=== PATIENT | female | born 1960 | race Caucasian/White ===

== ENCOUNTER 2019-11-23 07:39 | Outpatient (CLI) | payer MEDICAID, SELFPAY ==
[2019-11-23 07:51] VITALS: BP 111/55; PULSE 59; RESP 17; TEMP 37.3; O2SAT 97
[2019-11-23] MEDS: Lactated Ringers 1,000 ML 80 ML IV (08:39)
[2019-11-23] MEDS: fentaNYL 100 MCG/2 ML VIAL IVP ×2 (08:47→08:51)
[2019-11-23] MEDS: Midazolam 2 MG/2 ML VIAL IVP (08:48)
[2019-11-23 09:19] VITALS: BP 138/77; PULSE 58; RESP 12; O2SAT 99
--- NOTE | 2019-11-23 09:20 | DI.RAD_ITS ---
EXAM: XR PAIN CLINIC FLUORO JOINT IN CLINICAL HISTORY: Dx: Osteoarthritis of right knee. TECHNIQUE: Fluoroscopy was provided for the referring physician for guidance with performing injecti on procedure. COMPARISON: No exams were available for comparison FINDINGS: Please see procedure note for details. Fluoro time: 53.5 sec RADIATION DOSE DELIVERED:
[2019-11-23] MEDS: Lidocaine 1% Pres-Free 30 ML VIAL IJ (09:23)
[2019-11-23] MEDS: Bupivacaine 0.5% Pres-Free 10 ML VIAL IJ (09:23)
[2019-11-23] MEDS: Lidocaine 2% Pres-Free 5 ML VIAL IJ (09:24)
[2019-11-23] MEDS: methylPREDNISolone ACETATE 80 MG/ML VIAL IJ (09:24)
--- NOTE | 2019-11-23 09:29 | PDOC.PAIN_ITS ---
Pain Clinic Procedure Note Procedure Note Procedure Note: RIGHT GENICULAR NERVE RADIOFREQUENCY ABLATION WITH THE COOLIEF MACHINE Date of Service: November 23, 2019 Patient: Shey Link Provider: TERELL CARTER MD Pre-operative diagnosis: right knee osteoarthritis Post-operative diagnosis: same as above COMMENTS: Previous Genicular nerve block to the right knee was done at [facility] [place], patient received 95% pain relief. patient is status post right total knee replacement with multiple revisions, she reports 6 surgeries on the right knee - including a prior history of staph infection requiring IV antibiotics. Shey Link has been referred to the [facility] for RIGHT genicu lar nerve radiofrequency ablation. Shey was interviewed and the medical record reviewed. There were no medical, pharmacologic, radiographic or other structural contraindications to attempting fluoroscopically guided RIGHT genicular nerve radiofrequency ablation. Risks and potential side effects as well as potential benefit of the procedure were reviewed with Shey Link , and HER voiced concerns were addressed. After I believed that the patient was completely informed, the printed consent form was signed. Standard time-out procedure was performed. Shey was placed in the supine position on the fluoroscopy table and automated blood pressure cuff and pulse oximeter applied. The skin entry points for approaching RIGHT superolateral genicular nerve, the superomedial genicular nerve and the inferomedial genicular was identified under the most advantageous fluoroscopic view and marked. Following thorough Chlorhexadine preparation of the skin and draping, 1% lidocaine infiltration of the skin entry point and subcutaneous tissues was accomplished using a 1.5 25G needle. Next, the coolief RF Cannula with a 10 mm active tip was advanced to os at the location of the specific nerve roots (3) using fluoroscopic guidance. Next, sensory and motor testing was performed and no abnormal findings were found. Next, 1 cc of 2% Lidocaine was injected at each site. The lesion was then created with 80 degrees C for 90 seconds. Each needle was advance 1 cm and the lesion was completed again. Each cannula was advanced until the tip reached the posterior aspect of the bone shaft. 1/3 cc of Depomedrol (40 mg/cc) was then injected at each site followed by 2 cc of 0.5% Bupivacaine as the needle was withdrawn. The needles were removed without difficulty. Shey's vital signs were stable throughout the procedure and were as recorded in the docflowsheet by the nursing staff. If given, dosages of intravenous drugs for anxiolysis and analgesia were documented in JUN. Follow up plans and appointments were discussed with the Shey Link . Post procedure instruction was given as documented in nursing documentation and having met discharge criteria, Shey was discharged from the [facility]. COMMENTS: No complications. Nam WJ1, Aki SJ, Kendall JG, Laura JG, Nilson YOUSSEF, Aaliyah PH, Edward JW. Radiofrequency treatment relieves chronic knee osteoarthritis pain: a double-blind randomized controlled trial. Pain. 2011 Jun;152(3):481-7. doi: 10.1016/j.pain.2010.09.029. Amber S1, Wilber ON2, Paige Y3, ?zl?lerden P2, Saqib U1, Maykel ?m?rl? I. Which one is more effective for the clinical treatment of chronic pain in knee osteoarthritis: radiofrequency neurotomy of the genicular nerves or intra- articular injection? Int J Rheum Dis. 2016 Nov 16. Patient received 1mg of IV versed and 50mcg of IV Fentanyl for anxiolysis. I personally performed this entire procedure. Terell Carter MD Attending Physician
== END 2019-11-23 07:59 ==
PROVIDERS: Visit Provider Internal Medicine
DX: M17.11 Unilateral primary osteoarthritis, right knee (principal)
CPT/HCPCS: 64624; 64640; 77002; J1040; J2250; J3010

== ENCOUNTER 2020-06-21 12:58 | Outpatient (CLI) | payer MEDICAID, SELFPAY ==
--- NOTE | 2020-06-21 06:00 | DI.RAD_ITS ---
EXAM: XR PAIN CLINIC FLUORO JOINT IN CLINICAL HISTORY: Dx: Osteoarthiritis of the knee TECHNIQUE: 2D and realtime digital imaging was performed. CONTRAST MATERIAL: None. COMPARISON: No exams were available for comparison FINDINGS: Fluoroscopy was provided during genicular radiofrequency ablation treatment of the right knee. See p rocedyarelis report for details.. Fluoro time: 88.6 seconds Cumulative dose: 6.53 mGy IMPRESSION:
[2020-06-21 13:20] VITALS: BP 132/76; PULSE 59; RESP 17; TEMP 37.1; O2SAT 98
--- NOTE | 2020-06-21 13:32 | PDOC.PAIN_ITS ---
Pain Clinic Procedure Note Procedure Note Procedure Note: RIGHT GENICULAR NERVE RADIOFREQUENCY ABLATION WITH THE COOLIEF MACHINE Date of Service: June 212020 Patient: Shey Link Provider: TERELL CARTER MD Pre-operative diagnosis: right knee osteoarthritis Post-operative diagnosis: same as above COMMENTS: Previous Genicular nerve block to the right knee was done at [facility] [place], patient received 95% pain relief last for six months. patient is status post right total knee replacement with multiple revisions, she reports 6 surgeries on the right knee - including a prior history of staph infection requiring IV antibiotics. Shey Link has been referred to the [facility] for RIGHT genicular nerve radiofrequency ablation. Shey was interviewed and the medical record reviewed. There were no medical, pharmacologic, radiographic or other structural contraindications to attempting fluoroscopically guided RIGHT genicular nerve radiofrequency ablation. Risks and potential side effects as well as potential benefit of the procedure were reviewed with Shey Link , and HER voiced concerns were addressed. After I believed that the patient was completely informed, the printed consent form was signed. Standard time-out procedure was performed. Shey was placed in the supine position on the fluoroscopy table and automated blood pressure cuff and pulse oximeter applied. The skin entry points for approaching RIGHT medial retinacular nerve, superolateral genicular nerve, the superomedial genicular nerve and the inferomedial genicular was identified under the most advantageous fluoroscopic view and marked. Following thorough Chlorhexadine preparation of the skin and draping, 1% lidocaine infiltration of the skin entry point and subcutaneous tissues was accomplished using a 1.5 25G needle. Next, the coolief RF Cannula with a 10 mm active tip was advanced to os at the location of the specific nerve roots (4) using fluoroscopic guidance. Next, sensory and motor testing was performed and no abnormal findings were found. Next, 1 cc of 2% Lidocaine was injected at each site. The lesion was then created with 80 degrees C for 90 seconds. Each needle was advance 1 cm and the lesion was completed again. Each cannula was advanced until the tip reached the posterior aspect of the bone shaft. 1/3 cc of Depomedrol (40 mg/cc) was then injected at each site followed by 2 cc of 0.5% Bupivacaine as the needle was withdrawn. The needles were removed without difficulty. Shey's vital signs were stable throughout the procedure and were as recorded in the docflowsheet by the nursing staff. If given, dosages of intravenous drugs for anxiolysis and analgesia were documented in JUN. Follow up plans and appointments were discussed with the Shey Link . Post procedure instruction was given as documented in nursing documentation and having met discharge criteria, Shey was discharged from the [facility]. COMMENTS: No complications. Nam WJ1, Aki SJ, Kendall JG, Laura JG, Nilson YOUSSEF, Aaliyah PH, Edward JW. Radiofrequency treatment relieves chronic knee osteoarthritis pain: a double-blind randomized controlled trial. Pain. 2010;152(3):481-7. doi: 10.1016/j.pain.2010.09.029. Amber S1, Wilber ON2, Paige Y3, ?zl?lerden P2, Saqib U1, Maykel ?m?rl? I. Which one is more effective for the clinical treatment of chronic pain in knee osteoarthritis: radiofrequency neurotomy of the genicular nerves or intra- articular injection? Int J Rheum Dis. 2016 Nov 16. Patient received 1mg of IV versed and 75mcg of IV Fentanyl for anxiolysis. I personally performed this entire procedure. Terell Carter MD Attending Physician
[2020-06-21] MEDS: Lactated Ringers 1,000 ML 80 ML IV (13:50)
[2020-06-21] MEDS: Midazolam 2 MG/2 ML VIAL IVP (14:09)
[2020-06-21] MEDS: fentaNYL 100 MCG/2 ML VIAL IVP ×3 (14:09→14:29)
[2020-06-21 14:48] VITALS: BP 144/66; PULSE 66; RESP 19; O2SAT 97
[2020-06-21] MEDS: Lidocaine 2% Pres-Free 5 ML VIAL IJ (15:16)
[2020-06-21] MEDS: Bupivacaine 0.5% Pres-Free 10 ML VIAL IJ (15:17)
[2020-06-21] MEDS: Lidocaine 1% Pres-Free 30 ML VIAL IJ (15:17)
[2020-06-21] MEDS: methylPREDNISolone ACETATE 40 MG/ML VIAL IJ (15:17)
== END 2020-06-21 12:59 | disposition home or self-care (01) ==
LOC: PC 13:03
PROVIDERS: Visit Provider Internal Medicine
DX: M17.11 Unilateral primary osteoarthritis, right knee (principal)
CPT/HCPCS: 64624; 77002; J1030; J2250; J3010

== ENCOUNTER 2021-06-27 07:52 | Outpatient (CLI) | payer MEDICAID, SELFPAY ==
--- NOTE | 2021-06-27 06:00 | DI.RAD_ITS ---
Exam(s) XR PAIN CLINIC FLUORO JOINT IN EXAM: XR PAIN CLINIC FLUORO JOINT IN CLINICAL HISTORY: Dx: Osteoarthritis of the knee TECHNIQUE: 2D and realtime digital imaging was performed. Radiologist not present. CONTRAST MATERIAL: None. COMPARISON: No exams were available for comparison FINDINGS: Fluoroscopy was provided for pain management therapy. Please refer to procedure report or details. Cumulative dose: Ka,r=7.15 mGy IMPRESSION: RADIATION DOSE DELIVERED:
[2021-06-27 08:07] VITALS: BP 147/90; PULSE 66; RESP 20; TEMP 36.6; O2SAT 97
[2021-06-27] MEDS: fentaNYL 100 MCG/2 ML VIAL IVP ×2 (08:41→08:47)
[2021-06-27] MEDS: Midazolam 2 MG/2 ML VIAL IVP (08:42)
--- NOTE | 2021-06-27 09:16 | PDOC.PAIN_ITS ---
Pain Clinic Procedure Note Procedure Note Procedure Note: RIGHT GENICULAR NERVE RADIOFREQUENCY ABLATION WITH THE COOLIEF MACHINE Date of Service: June 27, 2021 Patient: Shey Link Provider: Arie Watts DO, MPH Pre-operative diagnosis: Right knee osteoarthritis Post-operative diagnosis: Same COMMENTS: Previous Genicular ablation to the RIGHT knee on 06/21/2020 with >6 months of relief.. Shey Link has been referred to the [facility] for RIGHT genicular nerve radiofrequency ablation. Shey was interviewed and the medical record reviewed. There were no medical, pharmacologic, radiographic or other structural contraindications to attempting fluoroscopically guided RIGHT genicular nerve radiofrequency ablation. Risks and potential side effects as well as potential benefit of the procedure were reviewed with Shey Link, and HER voiced concerns were addressed. After I believed that the patient was completely informed, the printed consent form was signed. Standard time-out procedure was performed. Shey was placed in the supine position on the fluoroscopy table and automated blood pressure cuff and pulse oximeter applied. The skin entry points for approaching RIGHT superolateral genicular nerve, the superomedial genicular nerve and the inferomedial genicular was identified under the most advantageous fluoroscopic view and marked. Following thorough Chlorhexadine preparation of the skin and draping, 1% lidocaine infiltration of the skin entry point and subcutaneous tissues was accomplished using a 1.5 25G needle. Next, the 5 cm 18G RF Cannula with a 4 mm active tip was advanced to os at the location of the specific nerve roots (3) using fluoroscopic guidance. Next, sensory and motor testing was performed and no abnormal findings were found. Next, 1 cc of 2% Lidocaine was injected at each site. The lesion was then created with 80 degrees C for 90 seconds. 1/4 cc of Depomedrol (40 mg/cc) was then injected at each site followed by 1 cc of 0.5% Bupivacaine as the needle was withdrawn. The needles were removed without difficulty. Yulias vital signs were stable throughout the procedure and were as recorded in the docflowsheet by the nursing staff. If given, dosages of intravenous drugs for anxiolysis and analgesia were documented in MAR. Follow up plans and appointments were discussed with the Shey Link . Post procedure instruction was given as documented in nursing documentation and having met discharge criteria, Shey was discharged from the [facility]. COMMENTS: No complications. Nam WJ1, Aki SJ, Kendall JG, Laura JG, Devine YOUSSEF, Park PH, Leon JW. Radiofrequency treatment relieves chronic knee osteoarthritis pain: a double-blind randomized controlled trial. Pain. 2011 Jun;152(3):481-7. doi: 10.1016/j.pain.2010.09.029. Amber S1, Wilber ON2, Paige Y3, ?zl?rosita P2, Saqib U1, Maykel ?m?rl? I. Which one is more effective for the clinical treatment of chronic pain in knee osteoarthritis: radiofrequency neurotomy of the genicular nerves or intra- articular injection? Int J Rheum Dis. 2016 Nov 12. F/U with our office as needed. If she continues to achieve good pain relief for at least 6 months, we can continue repeating this procedure. I personally performed this entire procedure. Arie Watts DO, MPH [facility]
[2021-06-27] MEDS: Lidocaine 2% Pres-Free 5 ML VIAL IJ (09:22)
[2021-06-27] MEDS: methylPREDNISolone ACETATE 40 MG/ML VIAL IJ (09:23)
[2021-06-27] MEDS: Bupivacaine 0.5% Pres-Free 10 ML VIAL IJ (09:23)
== END 2021-06-27 07:53 | disposition home or self-care (01) ==
PROVIDERS: Visit Provider Preventive Medicine Occupational Medicine
DX: M25.561 Pain in right knee (principal); M17.11 Unilateral primary osteoarthritis, right knee
CPT/HCPCS: 64624; 77002; J1030; J2250; J3010

== ENCOUNTER 2022-03-25 13:01 | Outpatient (CLI) | payer MEDICAID, SELFPAY ==
[2022-03-25 13:19] VITALS: BP 145/84; PULSE 68; RESP 20; TEMP 37; O2SAT 93
[2022-03-25] MEDS: Midazolam 2 MG/2 ML VIAL IVP ×2 (14:06→14:11)
[2022-03-25] MEDS: fentaNYL 100 MCG/2 ML VIAL IVP ×3 (14:06→14:22)
[2022-03-25] MEDS: Lactated Ringers 500 ML 80 ML IV (14:10)
[2022-03-25 14:27] VITALS: BP 127/90; PULSE 70; RESP 20; O2SAT 96
--- NOTE | 2022-03-25 14:27 | DI.RAD_ITS ---
Exam(s) XR PAIN CLINIC FLUORO JOINT IN EXAM: XR PAIN CLINIC FLUORO JOINT IN CLINICAL HISTORY: Dx: Osteoarthritis of the knee. TECHNIQUE: Fluoroscopy was provided for the referring physician for guidance with performing pain cl inic injection procedure. COMPARISON: No exams were available for comparison FINDINGS: Please see procedure note for details. Fluoro time: 26 seconds RADIATION DOSE DELIVERED: nadeem Lanza=2.39 mGy
--- NOTE | 2022-03-25 14:40 | PDOC.PAIN ---
Date of service: 03/25/22 Time of Service: 14:41 Pain Clinic Procedure Note Procedure Note Procedure Note: Right Knee Radiofrequency with Coolief Machine PROCEDURE NOTE Date of Service: March 25, 2022 Patient: Shey Link Provider: Luz Maria Berry MD Pre Operative Diagnosis: right knee OA Post Operative Diagnosis: right knee OA PROCEDURE: 1. Superolateral genicular branch from the vastus lateralis 2. Superomedial genicular branch from the vastus medialis 3. Inferomedial genicular branch from the saphenous nerve Shey Link was brought into brought to the procedure room and placed on the exam table in a comfortable supine position. The place for needle placement was obtained by manual palpation with radiographic confirmation. The sterile field was prepared by chloroprep and sterile drapes. Local anesthesia superficial and deep was provided by local infiltration of ~10ml of 1% lidocaine. A 17g 50mm radiofrequency introducer needle with a 4mm active tip was placed overlying the right knee joint and using fluoroscopic guidance the needle was advanced to a bony endpoint on the superiolateral portion of the femoral condyle of the right knee. A second needle was advanced to a bony endpoint on the superiomedial portion of the femoral condyle. A third needle was then placed over the inferiomedial portion of the tibial condyle until a bony endpoint was met. Attempted aspiration yielded no blood. Motor stimulation was tested ad 2.0 volts with no leg movement. Images were saved in AP and lateral. 2ml of 2% lidocaine was slowly injected. Then a radiofrequency ablation of each of the geniculate nerves were done at 80 degrees Celsius for 2 minutes and 30 seconds each. The needles were withdrawn. Post lesinoing, 2cc of 0.5% Bupivocaine was injected at each site. POST PROCEDURE EVALUATION: IMPRESSION: 1. Summary of procedure. Patient has baseline anxiety and is status post multiple right knee surgeries. She has DM2 with most recent A1c at 8.9 and 9.4. Steorid was omitted post RF. 2. RTC on prn basis. 3. Estimated Blood Loss: 1-2cc 4. Sedation: patient received total of 2mg of IV versed and 75mcg of IV Fentanyl for this procedure. Follow up plans and appointments were discussed with the Shey . Post procedure instruction was given as documented in nursing documentation and having met discharge criteria, Shey was discharged from the [facility]. COMMENTS: No complications. F/U with our office as needed. I personally performed this entire procedure. Luz Maria Berry MD Attending Physician
[2022-03-25] MEDS: Lidocaine 2% Pres-Free 5 ML VIAL IJ (14:51)
[2022-03-25] MEDS: Bupivacaine 0.5% Pres-Free 10 ML VIAL IJ (14:51)
== END 2022-03-25 13:02 | disposition home or self-care (01) ==
LOC: PC 13:01
PROVIDERS: Visit Provider Internal Medicine
DX: M17.11 Unilateral primary osteoarthritis, right knee (principal)
CPT/HCPCS: 64624; 77002; J2250; J3010

== ENCOUNTER 2022-10-28 12:08 | Outpatient (CLI) | payer MEDICAID, SELFPAY ==
--- NOTE | 2022-10-28 07:15 | DI.RAD_ITS ---
Exam(s) XR PAIN CLINIC FLUORO JOINT IN EXAM: XR PAIN CLINIC FLUORO JOINT IN CLINICAL HISTORY: Dx: Osteoarthritis of the knee TECHNIQUE: 2D and realtime digital imaging was performed. CONTRAST MATERIAL: Refer to procedure report. COMPARISON: XR PAIN CLINIC FLUORO JOINT IN from 03/25/2022 FINDINGS: Fluoroscopy was provided for Dr. Watts during the performance of a right genicular radiofrequency abl ation. Please refer to the procedure report for complete details. Ka,r=3.85 mGy IMPRESSION:
[2022-10-28 12:21] VITALS: BP 124/80; PULSE 62; RESP 20; TEMP 36.5; O2SAT 97
[2022-10-28] MEDS: Lactated Ringers 500 ML 80 ML IV (13:02)
[2022-10-28] MEDS: fentaNYL 100 MCG/2 ML VIAL IVP ×3 (13:02→13:30)
[2022-10-28] MEDS: Midazolam 2 MG/2 ML VIAL IVP (13:02)
[2022-10-28 13:33] VITALS: BP 103/45; PULSE 87; RESP 16; O2SAT 96
--- NOTE | 2022-10-28 13:37 | PDOC.PAIN_ITS ---
Date of service: 10/28/22 Time of Service: 13:38 Pain Managment Procedure Note Procedure Note Procedure Note: PROCEDURE NOTE RIGHT GENICULAR NERVE RADIOFREQUENCY ABLATION Date of Service: October 28, 2022 Patient: Shey Link Provider: Margie Sam DO, MPH Shey Link has been referred to the [facility] for Right genicular nerve radiofrequency ablation with the [employer] machine. Pre-operative diagnosis: Pain in right knee M25.561 Post-operative diagnosis: Same Pre-Procedure Pain: VAS=2/10 Comments: Previous genicular nerve blocks and RFA X 2 (03/25/2022 and had >6 mo nths of pain relief & 06/27/21) to the Right knee. PROCEDURE: 1. Superolateral genicular branch from the vastus lateralis 2. Superomedial genicular branch from the vastus medialis 3. Inferomedial genicular branch from the saphenous nerve 4.Terminal branch of the nerve vastus intermedius Shey was interviewed and the medical record reviewed. There were no medical, pharmacologic, radiographic or other structural contraindications to attempting fluoroscopically guided Right genicular nerve radiofrequency ablation. Risks and potential side effects as well as potential benefit of the procedure were reviewed with Shey Link , and the patient's voiced concerns were addressed. After I believed that the patient was completely informed, the printed consent form was signed. Standard time-out procedure was performed. Shey Link was brought into brought to the procedure room and placed on the fluoroscopy table in a comfortable supine position and automated blood pressure cuff and pulse oximeter applied. A grounding pad was placed on the right ankle. The place for needle placement was obtained by manual palpation with radiographic confirmation. The skin entry points for approaching Right superolateral genicular nerve, the superomedial genicular nerve, nerve of the vastus intermedius and the inferomedial genicular was identified under the most advantageous fluoroscopic view and marked. Following thorough Chlorhexadine preparation of the skin and draping, 1% lidocaine infiltration of the skin entry point and subcutaneous tissues was accomplished using a 1.5 25G needle. Next, the 17G 50 mm radiofrequency cannula needle with a 4mm active tip was advanced to os at the location of the specific nerve roots (4) using fluoroscopic guidance. Next, motor testing was performed and no abnormal findings were found. Next, 1 cc of 2% Lidocaine was injected at each site after negative aspiration. The lesion was then created with 80 degrees Celsius for 2 minutes and 30 seconds each. 1/4 cc of Depo-Medrol (40 mg/cc) was then injected at each site followed by 1 cc of 0.5% Bupivacaine as the needle was withdrawn. There was no unusual discomfort expressed by Shey. The needles were withdrawn without difficulty. Shey was observed and was without hemodynamic, neurologic, or allergic reactions.? Fluoroscopic images were digitally archived. Shey's vital signs were stable throughout the procedure and were as recorded in the docflowsheet by the nursing staff. If given, dosages of intravenous drugs for anxiolysis and analgesia were documented in MAR. POST PROCEDURE EVALUATION: IMPRESSION: 1. Medication given is documented in the MAR 2. Follow up plan: Shey to contact [facility] as needed. This procedure may be repeated if the patient achieves at least 50% improvement in pain and/or function for at least 6 months. 3. Estimated Blood Loss: <5ml 4. Fluoroscopy time: Documented in the EMR Follow up plans and appointments were discussed with Shey. Post procedure instruction was given as documented in nursing documentation and having met discharge criteria, Shey was [facility] from the [facility]. COMMENTS: No apparent complications. Post-procedure pain: VAS= 0/10. Browning WJ1, Aki SJ, Kendall JG, Laura JG, Nilson YOUSSEF, Aaliyah PH, Edward JW. Radiofrequency treatment relieves chronic knee osteoarthritis pain: a double-blind randomized controlled trial. Pain. 2010;152(3):481-7. doi: 10.1016/j.pain.2010.09.029. Amber S1, Wilber ON2, Paige Y3, ?zl?rosita P2, Saqib U1, Maykel ?m?rl? I. Which one is more effective for the clinical treatment of chronic pain in knee osteoarthritis: radiofrequency neurotomy of the genicular nerves or intra-articu lar injection? Int J Rheum Dis. 2016 Nov 16. I personally completed the entire procedure. MARGIE SAM DO, MPH [employer] - Subspecialty board certification in Pain Medicine [facility]
[2022-10-28] MEDS: Bupivacaine 0.5% Pres-Free 10 ML VIAL IJ (13:54)
[2022-10-28] MEDS: Lidocaine 2% Pres-Free 5 ML VIAL IJ (13:54)
[2022-10-28] MEDS: methylPREDNISolone ACETATE 40 MG/ML VIAL IJ (13:54)
== END 2022-10-28 12:09 | disposition home or self-care (01) ==
LOC: PC 12:09
PROVIDERS: Visit Provider Preventive Medicine Occupational Medicine
DX: M25.561 Pain in right knee (principal)
CPT/HCPCS: 64624; 77002; J1030; J2250; J3010

== ENCOUNTER 2023-01-15 07:53 | Outpatient (CLI) | payer MEDICAID, SELFPAY ==
--- NOTE | 2023-01-15 06:00 | DI.RAD_ITS ---
Exam(s) XR PAIN CLINIC THORACIC SP 2V EXAM: XR PAIN CLINIC THORACIC SP 2V CLINICAL HISTORY: Dx: Intercostal neuralgia. TECHNIQUE: Fluoroscopy was provided for the referring physician for guidance with performing pain cl inic injection procedure. COMPARISON: No exams were available for comparison FINDINGS: Please see procedure note for details. Fluoro time: 41.7 seconds RADIATION DOSE DELIVERED: Mylar=10.66 mGy
[2023-01-15 08:04] VITALS: BP 148/77; PULSE 71; RESP 20; TEMP 36.6; O2SAT 93
[2023-01-15] MEDS: Lidocaine 2% Pres-Free 5 ML VIAL IJ (08:41)
[2023-01-15] MEDS: Dexamethasone Sod. Phos./Pres-Free 10 MG/ML VIAL IJ (08:41)
[2023-01-15] MEDS: Bupivacaine 0.5% Pres-Free 10 ML VIAL IJ (08:42)
[2023-01-15 09:07] VITALS: BP 142/89; PULSE 66; RESP 12; O2SAT 94
--- NOTE | 2023-01-15 10:28 | PDOC.PAIN ---
Date of service: 01/15/23 Time of Service: 08:15 Pain Managment Procedure Note Procedure Note Procedure Note: Procedure Note Intercostal Nerve Blocks Date of Service: January 15, 2023 Patient:Shey Harris? Provider:? Arie Watts DO, MPH Shey [facility] intercostal nerve block(s).? Pre-operative diagnosis: Intercostal neuropathy Post-operative diagnosis: Same Pre-procedure pain: VAS= 4/10 Comments: I previously evaluated her in the clinic. On fluoroscopic imaging, I determined that it was likely the right 10th and/or the 9th intercostal nerve(s). She is allergic to contrast Iodine, so we will add ultrasound to fluoroscopy for added safety. He stopped the Plavix 7 days ago and continued on the ASA. Shey was interviewed and the medical record was reviewed.? There were no medical, pharmacologic, radiographic or other structural contraindications to attempting fluoroscopically guided intercostal nerve blocks.? Risks, potential side effects, indications, and potential benefits of the procedure were reviewed with Shey.? Questions and concerns were addressed.? After it was clear that the patient was fully informed about the procedure, the printed consent form was signed by the patient and myself.? Shey was placed in the prone position on the fluoroscopy table and automated blood pressure cuff as well as pulse oximeter was applied. A standard time-out procedure was performed. The skin entry point for entering the mid-back 5 cm lateral to the proximal portion of the right 10th rib was identified under fluoroscopy and marked.? The skin entry point was thoroughly cleaned with Chlorhexadine preparation and the skin was draped.? Next a mixture of 2 mls of 1% lidocaine was infiltrated into the area of the planned skin entry point and underlying subcutaneous tissues.? Next an 22G 3.5 needle was placed under fluoroscopic guidance to the right 10th rib. 1 cc of 1% Lidocaine was injected on the rib and the needle was then walked inferiorly under the 10th rib using ultrasound guidance. Next 1 cc of Dexamethasone (10 mg/cc) was injected and this was followed by 2 cc of 0.5% Bupivacaine and the needle was withdrawn. She had significant, but not complete, pain relief. I decided to repeat this procedure at the right 9th intercostal nerve and this time I only used 0.5 cc of the Dexamethasone.? Shey was observed and was without hemodynamic, neurologic, or allergic reactions.? Fluoroscopic images were digitally archived. Shey's vital signs were stable throughout the procedure and were as recorded in the doc flowsheet by the nursing staff.? If given, dosages of intravenous drugs for anxiolysis and analgesia were documented in MAR. Follow up plans and appointments were discussed with Shey.? Post procedure instruction was given as documented in nursing documentation and having met discharge criteria, She[facility]. ? COMMENTS: No apparent complications. Post-procedure pain: VAS= 3/10. Shey to contact [facility] as needed. If at least 50% improvement in pain and/or function for at least 3 months is achieved, this procedure can be repeated. Her immediate pain relief was not great. We will see if she gets better pain relief with time. I personally completed the entire procedure. ARIE WATTS DO, MPH ABPMR-subspecialty board certification in Pain Medicine [facility]
== END 2023-01-15 07:54 | disposition home or self-care (01) ==
LOC: PC 07:57
PROVIDERS: PCP Nurse Practitioner Family; Visit Provider Preventive Medicine Occupational Medicine
DX: G58.8 Other specified mononeuropathies (principal)
CPT/HCPCS: 64420; 64421; 72070